=== PATIENT | male | born 1970 ===

== ENCOUNTER 2018-04-09 22:30 | Emergency (ER) | payer SELFPAY ==
[2018-04-09 22:31] VITALS: BMI 33.2
[2018-04-09 22:57] VITALS: BP 174/98; PULSE 93; RESP 20; TEMP 98.8; O2SAT 98
--- NOTE | 2018-04-10 00:16 | C.PDOC ---
History Of Present Illness 47 year old male presents to the ED requesting detox from alcohol. Patient reports he drinks everyday. Patient feel very shaky. Patient denies SI/HI, hallucinations, other medical complaints. Time Seen by Provider: 04/10/18 00:09 Chief Complaint (Nursing): Substance Abuse History Per: Patient History/Exam Limitations: no limitations Onset/Duration Of Symptoms: Days Current Symptoms Are (Timing): Still Present Suicide/Self Injury Attempted (Context): None Modifying Factor(s): Alcohol Associated Symptoms: denies: Depression, Suicidal Thoughts, Suicidal Plan Recent travel outside of the [place]: No Additional History Per: Patient Past Medical History Reviewed: Historical Data, Nursing Documentation, Vital Signs Vital Signs: Last Vital Signs Temp 98.8 F 04/09/18 22:53 Pulse 93 H 04/09/18 22:53 Resp 20 04/09/18 22:53 BP 174/98 H 04/09/18 22:53 Pulse Ox 98 04/09/18 22:53 - Medical History PMH: HTN Denies: Chronic Kidney Disease Surgical History: No Surg Hx Family History: States: Unknown Family Hx - Social History Hx Alcohol Use: Yes (ETOH ABUSE.BINGE DRINK.LAST DRANK SATURDAY 3-4 LARGE BEER. NORMALLY DRKS 3-12) Hx Substance Use: No Review Of Systems Constitutional: Negative for: Fever, Chills Cardiovascular: Negative for: Chest Pain Gastrointestinal: Negative for: Nausea, Vomiting, Abdominal Pain Skin: Negative for: Rash Neurological: Negative for: Weakness, Numbness Psych: Negative for: Depression, Suicidal ideation Physical Exam - Physical Exam Appears: Non-toxic, No Acute Distress, Other (shaky) Skin: Normal Color, Warm, Dry Head: Atraumatic, Normacephalic Eye(s): bilateral: Normal Inspection Neck: Normal ROM, Supple Chest: Symmetrical Cardiovascular: Rhythm Regular Respiratory: Normal Breath Sounds, No Rales, No Rhonchi, No Wheezing Gastrointestinal/Abdominal: Soft, No Tenderness, No Guarding, No Rebound Extremity: Normal ROM, No Tenderness, No Swelling Neurological/Psych: Oriented x3, Normal Speech, Normal Cognition Gait: Steady ED Course And Treatment O2 Sat by Pulse Oximetry: 98 (ON RA) Pulse Ox Interpretation: Normal Medical Decision Making Medical Decision Making: Patient was informed that no detox beds were available. orchid worker provided the patient with list of other detox facilities, [facility], [place] and told patient to call Jayda from crisis in the morning to be on the prescreen list. Plan: * Librium 50 mg PO Disposition - Disposition Referrals: Alcoholics Anonymous [Outside] [facility] [Outside] Disposition: HOME/ ROUTINE Disposition Time: 00:15 Condition: STABLE Instructions: Alcohol Abuse and Alcoholism (DC) Forms: [employer] (Thai) - Clinical Impression Clinical Impression: Alcohol abuse - Scribe Statement The provider has reviewed the documentation as recorded by the Scribe Rajesh Pichardo All medical record entries made by the Scribe were at my direction and personally dictated by me. I have reviewed the chart and agree that the record accurately reflects my personal performance of the history, physical exam, medical decision making, and the department course for this patient. I have also personally directed, reviewed, and agree with the discharge instructions and disposition.
== END 2018-04-10 00:45 | disposition home or self-care (01) ==
LOC: C.ER 22:30
DX: F10.10 Alcohol abuse, uncomplicated (principal); Y90.9 Presence of alcohol in blood, level not specified

== ENCOUNTER 2018-04-11 10:27 | Emergency (ER) | payer MEDICAID, OTHER ==
[2018-04-11 10:27] VITALS: BMI 33.2
--- NOTE | 2018-04-11 10:57 | C.PDOC ---
History Of Present Illness 47 year old male, whose PMHx includes Hypertension (non-compliant with medication for the past 7-8 months) and alcohol abuse, presents to the ED requesting alcohol detox. Patient states he was seen in the ED for the same reason two days ago, but was told there were no detox beds available at the time. He received a phone call yesterday instructing him to present to the ED today. Patient admits to drinking every day. is last drink was two days ago, and is complaining of weakness and mild shakiness. He has been homeless for the past 3 weeks. Otherwise, patient denies suicidal/homicidal ideation or any other substance abuse at this time. 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 Time Seen by Provider: 04/11/18 10:54 Chief Complaint (Nursing): Substance Abuse History Per: Patient History/Exam Limitations: no limitations Onset/Duration Of Symptoms: Days (2) Current Symptoms Are (Timing): Still Present Suicide/Self Injury Attempted (Context): None Modifying Factor(s): Alcohol Severity: None Pain Scale Rating Of: 0 Associated Symptoms: denies: Suicidal Thoughts, Suicidal Plan Involuntary Hold By: None Recent travel outside of the [place]: No Additional History Per: Patient Past Medical History Reviewed: Historical Data, Nursing Documentation, Vital Signs Vital Signs: Last Vital Signs Temp 98.7 F 04/11/18 10:43 Pulse 93 H 04/11/18 10:43 Resp 20 04/11/18 10:43 BP 155/92 H 04/11/18 10:43 Pulse Ox 100 04/11/18 10:43 - Medical History PMH: HTN Denies: Chronic Kidney Disease Surgical History: No Surg Hx Family History: States: Unknown Family Hx - Social History Hx Alcohol Use: Yes Hx Substance Use: No - Immunization History Hx Tetanus Toxoid Vaccination: Yes (03/2018) Hx Influenza Vaccination: No Hx Pneumococcal Vaccination: No Review Of Systems Psych: Positive for: Other (alcohol detox ). Negative for: Suicidal ideation Physical Exam - Physical Exam Appears: Non-toxic, No Acute Distress Skin: Normal Color, Warm, Dry Head: Atraumatic, Normacephalic Eye(s): bilateral: Normal Inspection Oral Mucosa: Moist Neck: Supple Chest: Symmetrical, No Deformity, No Tenderness Cardiovascular: Rhythm Regular, No Murmur Respiratory: Normal Breath Sounds, No Rales, No Rhonchi, No Wheezing Extremity: Normal ROM Neurological/Psych: Oriented x3, Normal Speech, Normal Cognition, Other (mild tremor noted ) ED Course And Treatment - Laboratory Results Result Diagrams: 04/11/18 12:10 04/11/18 12:10 O2 Sat by Pulse Oximetry: 100 (on RA) Pulse Ox Interpretation: Normal Medical Decision Making Medical Decision Making: Impression: 47 year old male seeking alcohol detox Plan: * bloodwork * urinalysis * crisis evaluation * reassess and disposition Progress: Bloodwork and urinalysis ordered and reviewed. as per crisis, patient does not meet criteria. they will recommend other options. Disposition Counseled Patient/Family Regarding: Studies Performed, Diagnosis - Disposition Disposition: HOME/ ROUTINE Disposition Time: 12:43 Condition: STABLE Instructions: Alcohol Abuse and Alcoholism (DC) Forms: General Discharge Instructions - Clinical Impression Clinical Impression: Alcohol abuse
[2018-04-11 12:20] LABS: BASO % 1.6 % (0.0-2.0); EOS # 0.1 K/uL (0.0-0.7); EOS % 2.6 % (0.0-4.0); HEMOGLOBIN 11.9 g/dL (12.0-18.0); LYMPH # 0.6 K/uL (1.0-4.3); LYMPH % 18.8 % (20.0-40.0); MEAN CELL VOLUME 101.4 fL (80.0-94.0); MEAN CORPUSCULAR HEMOGLOBIN 36.5 pg (27.0-31.0); MEAN PLATELET VOLUME 9.7 fL (7.2-11.7); MONO # 0.2 K/uL (0.0-0.8); MONO % 7.4 % (0.0-10.0); NEUT % 69.6 % (50.0-75.0); RBC 3.27 Mil/uL (4.40-5.90); RED CELL DISTRIBUTION WIDTH 14.3 % (11.5-14.5); WHITE BLOOD COUNT 2.9 K/uL (4.8-10.8)
[2018-04-11 12:31] LABS: ALB/GLOB RATIO 0.8 (1.0-2.1); ALBUMIN 3.4 g/dL (3.5-5.0); ALT/SGPT 35 U/L (21-72); AST/SGOT 52 U/L (17-59); BLOOD UREA NITROGEN 7 mg/dL (9-20); GFR NON-AFRICAN AMERICAN > 60; URINE BILIRUBIN NEGATIVE (NEGATIVE); URINE BLOOD NEGATIVE (NEGATIVE); URINE CLARITY Clear (Clear); URINE COLOR Amber (YELLOW); URINE GLUCOSE (UA) NORMAL (Normal); URINE LEUKOCYTE ESTERASE NEG Leu/uL (Negative); URINE PROTEIN NEGATIVE (NEGATIVE)
[2018-04-11 12:50] LABS: BARBITURATES, UR NEGATIVE (NEGATIVE); BENZODIAZEPINES, UR POSITIVE (NEGATIVE); OPIATES, UR NEGATIVE (NEGATIVE); PHENCYCLIDINE, UR NEGATIVE (NEGATIVE)
[2018-04-11 13:30] VITALS: BP 165/90; PULSE 81; RESP 18; TEMP 98.3; O2SAT 99
== END 2018-04-11 13:32 | disposition home or self-care (01) ==
LOC: C.ER 10:27
DX: F10.10 Alcohol abuse, uncomplicated (principal); Y90.0 Blood alcohol level of less than 20 mg/100 ml; I10 Essential (primary) hypertension; Z91.19 Patient's noncompliance with other medical treatment and regimen